=== PATIENT | female | born 1960 | race Caucasian/White ===

== ENCOUNTER → 2024-12-22 10:11 | Outpatient (REF) | payer MEDICARE, BC, SELFPAY ==
[2024-12-22 10:54] LABS: Hematocrit 28.7 % (37.0-47.0); Hemoglobin 9.4 g/dL (12.0-16.0); Mean Corp Hgb Conc. 32.8 g/dL (33.0-37.0); Mean Corpuscular Volume 89.4 fL (81.0-99.0); Nucleated Red Blood Cells % 0 %; Platelet Count 222 10^3/uL (130-400); Red Cell Dist. Width 12.8 % (11.5-14.5)
[2024-12-22 11:13] LABS: INR 1.21; PT 15.8 Sec (11.4-14.6)
[2024-12-22 11:50] LABS: ALT (SGPT) 12 U/L (0-35); AST (SGOT) 22 U/L (14-36); Albumin 4.2 g/dl (3.5-5.0); Alkaline Phosphatase 86 U/L (38-126); Blood Urea Nitrogen 39 mg/dl (7-17); Calcium 9.4 mg/dl (8.4-10.2); Carbon Dioxide 22 mmol/L (22-30); Chloride 109 mmol/L (98-107); Glucose 88 mg/dl (70-99); Magnesium 2.1 mg/dl (1.6-2.3); Potassium 4.9 mmol/L (3.5-5.1); Sodium 138 mmol/L (135-145); Total Protein 6.9 g/dl (6.3-8.2); eGFR 35.35
== END ==
LOC: SDSPAT 10:11
PROVIDERS: ATTENDING PHYSICIAN Internal Medicine Cardiovascular Disease; FAMILY PHYSICIAN Family Medicine
DX: I48.0 Paroxysmal atrial fibrillation (principal)
CPT/HCPCS: 36415; 80053; 83735; 85025; 85610; 86850; 86900; 86901; 93005

== ENCOUNTER 2024-12-29 07:45 | Day surgery (SDC) | payer MEDICARE, BC, SELFPAY ==
[2024-12-22 10:18] VITALS: BMI 31.9
[2024-12-29] VITALS (11 sets, daily range): BP systolic 108–145; BP diastolic 52–70
[2024-12-29 08:43] LABS: Glucose - Point of Care 68 mg/dl (70-99)
[2024-12-29] MEDS: DEXTROSE 50% SYRINGE 12.5 GRAMS IV (08:43)
[2024-12-29 09:12] LABS: Glucose - Point of Care 142 mg/dl (70-99)
--- NOTE | 2024-12-29 10:00 | ITS.CL.ABL ---
Supply Chain Vice President - Ablation
Ablation
Procedure Report:
ELECTROPHYSIOLOGIC STUDY AND POSSIBLE ABLATION
DATE: December 29, 2024
Primary Care Provider: Darrick Acuna DO �
Primary Fluid Pump Operator: Dr Florian Moreno
INDICATION:
Symptomatic persistent Atrial Fibrillation with duration < 6 months.
HISTORY: See H and P.
Symptomatic AF, poorly controlled with attempted medical therapy
HAS-BLED: 2
Age
Abnormal Renal Function
[id number] score is 4 (hypertension, age, diabetes, Female).
PRESENTING RHYTHM: SR
HISTORY: See H and P.
Symptomatic AF, poorly controlled with attempted medical therapy.
ANTIARRHYTHMIC DRUG: Dronedarone 400 mg twice daily
ANTICOAGULATION: Apixaban 5 mg twice daily
'TIME-OUT': called and confirmed.
SEDATION/ANESTHESIA: provided via the anesthesia department using general anesthesia.
PROCEDURE:
Ultrasound Guidance with real-time visualization of needle insertion and vessel patency performed by or for femoral venous Vascular Access.
Under real-time US guidance, the needle was advanced with negative pressure into the vein. The needle was seen entering the vessel lumen with a good return of dark red flow, the syringe was removed, non-pulsatile, dark red blood low was noted and
the wire was passed without difficulty, then the needle was removed. US confirmed the wire was in the vein, not going into an artery,
Images were taken and saved for the patient's permanent record. Imaging findings typical femoral venous anatomy. Direct visualization of needle puncture into the femoral vein was observed and recorded.
A decapolar CS catheter was placed within the CS for mapping and pacing.
The intracardiac ultrasound catheter was positioned in the RA for continuous intracardiac ultrasound imaging.
Heparin bolus and infusion to target ACT at 300 -350 seconds was administered. Transseptal puncture was performed. This entailed advancing a sheath with dilator into the superior vena cava and withdrawing both (monitoring intracardiac ultrasound,
fluoroscopy and tip pressure) with the tip oriented toward the atrial septum. The fossa ovalis was engaged (indicated by sudden displacement of the sheath tip as well as tenting of the fossa seen on intracardiac ultrasound).
Transseptal puncture was performed. Left atrial catheter position was confirmed by echocardiographic imaging, pressure monitoring (LA mean pressure 9 mm Hg) and fluoroscopy. The sheath was advanced over the dilator and positioned in the left
atrium.
The K121a multipolar mapping/ablation Sphere-9 catheter was positioned through the transseptal sheath for high density mapping.
Geometry and voltage mapping was performed using the [employer] mapping system for three-dimensional electroanatomical mapping.
Catheter positioning was guided and confirmed using both I.C.E. and fluoroscopy.
High density electroanatomical three-dimensional mapping demonstrated 4 distinct pulmonary veins, LSPV, LIPV, RSPV, RIPV.
Ablation strategy included PVI as well as mapping for extra PV contributors to atrial fibrillation which would also be targeted if present.
Post electric field energy delivered via the sphere 9 catheter was used to electrically isolate each of the pulmonary veins at their ostia.
After accomplishing pulmonary venous isolation, mapping identified additional areas likely to be extra PV contributors to atrial fibrillation. These areas demonstrated patchy low voltage as well as complex fractionated electrograms. These areas can
be sites for the formation of rotors which can drive and maintain atrial fibrillation. These areas are known to be significant contributors to initiation and perpetuation of atrial fibrillation.
Additional energy applications/additional ablation sets targeted extra PV contributors to atrial fibrillation.
Targets for additional PFA ablation included:
LA posterior wall targeted with pulsed electric field energy isolating the posterior wall of the left atrium
After ablation of the posterior wall, additional targets were addressed:
LA inferior floor
These areas were ablated using pulsed electric field energy eliminating the extra PV contributors to atrial fibrillation.
Additionally, there is inducible atrial tachycardia
High density electroanatomical mapping as well as entrainment maneuvers defined clockwise mitral annular flutter.
A combination of pulsed electric field energy deliveries (closer to the left inferior pulmonary vein) and radiofrequency energy deliveries (closer to the mitral valve annulus) were delivered via the sphere 9 ablation catheter in a line from the left
inferior pulmonary vein down to the mitral valve annulus slowing and then terminating the atrial tachyarrhythmia.
Combination of voltage mapping as well as activation mapping while pacing from the distal coronary sinus catheter demonstrated block at the mitral annulus along the ablated line.
Post ablation mapping finds entrance and exit block at each of the pulmonary veins (LSPV, LIPV, RSPV, RIPV), the LA posterior wall and at the additional lines at the inferior/floor of the LA rendering the sites no longer able to contribute to atrial
fibrillation.
Combination of voltage mapping as well as activation mapping while pacing from the distal coronary sinus catheter demonstrated block at the mitral annulus along the ablated line.
Programmed electrostimulation including burst atrial pacing as well the delivery of decremental extrastimuli down to atrial effective refractory period and no sustained arrhythmias could be induced.
I.C.E. :
Pre-Ablation Post-Ablation
LVEF: 55 % 55 %
WMA: none none
Pericardial effusion: none none
COMPLICATIONS:
None
SUMMARY:
- Mapping and ablation to isolate the PVs resulting in electrical isolation of the pulmonary veins
- Additional AF ablation sets X 2 after PVI (LA posterior wall, Inf/floor of the LA posterior wall) resulting in elimination of the targeted extra PV contributors to atrial fibrillation (Post wall, Inf LA floor)
- Mapping and ablation of second tachycardia (mitral annular macro reentrant tachycardia/flutter) resulting in block at the mitral annular ablation line and rendering the tachycardia noninducible with programmed electrical stimulation
- 3-D Electroanatomical Mapping
- Intracardiac Ultrasound
- Ultrasound guidance for vascular access
Post ablation, I discussed today's findings and results with the patient's ,Tulio.
RECOMMENDATIONS:
- Observe in monitored bed.
- Maintain oral anticoagulation.
- Discontinue dronedarone
- Office visit with Katelynn Chapa NP on April 14, 2025
Copy to:
Darrick Acuna DO �
Dr Florian Moreno
[2024-12-29 10:22] LABS: Glucose - Point of Care 106 mg/dl (70-99)
[2024-12-29 10:47] LABS: ACT-LR - POC 358 Seconds (116-155)
[2024-12-29 11:07] LABS: ACT-LR - POC 360 Seconds (116-155)
[2024-12-29 11:13] LABS: Glucose - Point of Care 102 mg/dl (70-99)
[2024-12-29 13:12] LABS: Glucose - Point of Care 96 mg/dl (70-99)
--- NOTE | 2024-12-29 15:52 | W.PN.UPDATE ---
Update Note
Progress Note Update
64 yo WF s/p PVI (same day). She denies cp, sob, reba diet, voiding, EKG SR, R fem site c/d/i, no HT. She will resume Eliquis tonight. She will stop Multaq. Activity restrictions reviewed. She will f/u [employer] at [facility] in 3 mo. She is for d/c home after
430p if groin stable.
== END 2024-12-29 16:33 | disposition home or self-care (01) ==
LOC: CATH 07:45
PROVIDERS: ATTENDING PHYSICIAN Internal Medicine Cardiovascular Disease; FAMILY PHYSICIAN Family Medicine
DX: I48.19 Other persistent atrial fibrillation (principal); R00.0 Tachycardia, unspecified; I12.9 Hypertensive chronic kidney disease with stage 1 through stage 4 chronic kidney disease, or unspecified chronic kidney disease; E78.5 Hyperlipidemia, unspecified; E66.9 Obesity, unspecified; Z68.31 Body mass index [BMI] 31.0-31.9, adult; Z79.84 Long term (current) use of oral hypoglycemic drugs; E11.22 Type 2 diabetes mellitus with diabetic chronic kidney disease; Z85.3 Personal history of malignant neoplasm of breast; E03.9 Hypothyroidism, unspecified; D64.9 Anemia, unspecified; Z79.890 Hormone replacement therapy; Z79.01 Long term (current) use of anticoagulants; Z79.899 Other long term (current) drug therapy; Z88.8 Allergy status to other drugs, medicaments and biological substances
CPT/HCPCS: C1733; C1894; C1769; C1766; C1730; C1892; 82962; 85347; 86900; 86901; 93005; 93655; 93656; 93657